=== PATIENT | male | born 1960 | race Caucasian/White ===

== ENCOUNTER → 2017-07-18 | Outpatient (CLI) | payer OTHER ==
[~2017-07-18] MED LIST: ENAL0; LISINOPRIL; NORCO 5-325 TA1 EACH PO; NORFLEX100 MG PO; SIMVASTATIN
--- NOTE | 2017-07-30 18:42 | ONC ---
[place] [address] RADIATION ONCOLOGY NOTE Name: JOSE MANUEL ZAMORA Room: [facility]#: [id number] Admission: 07/18/17 Attend Phys: Collin Ortiz MD Discharge: Date of : 64 Report #: [id number] THIS REPORT FOR: //name// CC: Collin Echeverria MD DATE OF SERVICE: 07/18/2017 REFERRING PHYSICIANS: Dr. Shine Duong and Dustin Echeverria MD. PRIMARY SITE AND HISTOPATHOLOGY: The patient has at least a stage III base of tongue cancer. [facility] phone is [phone]. PROCEDURE: Nasopharyngolaryngoscopy. FINDINGS: On nasopharyngolaryngoscopy via the left nostril, there were no visible lesions in the nasopharynx. There were no visible lesions in the nostril. The patient did have fullness in the left base of tongue area. The true vocal cords were normally mobile bilaterally without any visible lesions, so the patient has findings consistent with his known diagnosis of base of tongue cancer. The patient is being set up for treatment of his base of tongue cancer. Thank you for allowing me to participate in the care of this patient. <ELECTRONICALLY SIGNED> By: Collin Ortiz MD 07/30/17 1842 1121 152Haja Ortiz MD /kamryn
--- NOTE | 2017-07-30 20:24 | CON ---
[address] [address] CONSULTATION Name: JOSE MANUEL ZAMORA Room: [facility]#: [id number] Admission: 07/18/17 Attend Phys: Collin Ortiz MD Discharge: Date of : 64 Report #: [id number] THIS REPORT FOR: //name// CC: Collin Echeverria MD DATE OF CONSULTATION: 07/18/2017 REFERRING PHYSICIANS: Include Dr. Dustin Echeverria and Dr. Shine Duong. [facility] phone is [phone]. 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 HISTORY OF PRESENT ILLNESS: The patient is a 57-year-old gentleman who had an enlarging left neck mass since at least 05/2017. He was originally treated with oral antibiotics and the mass persisted. He is a former smoker and he quit smoking many years ago. When he went to see his Ear, Nose and Throat physician, Dr. Dustin Echeverria, he noted a 3 cm left level 2 neck mass. It was firm and not tender. The fiberoptic exam at that time showed asymmetry in the left base of tongue. 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 The pathology report indicated that they ordered studies for HPV-P16 and that was pending. He presents to discuss treatment options. PAST MEDICAL HISTORY AND PAST SURGICAL HISTORY: The patient has hypertension. He has hyperlipidemia. He had surgery at [facility] in 04/2015 on his Achilles heel. He also had eye surgery in 05/1972. MEDICATIONS: Amlodipine 10 mg once a day, atorvastatin 20 mg once a day, 2.5 mg bisoprolol/6.25 mg hydrochlorothiazide once a day. He is on Cefdinir, etodolac as well, 7.5 mg hydrocodone/325 mg acetaminophen as needed, Aleve as needed, vitamin D supplements. ALLERGIES: He has no known drug allergies. FAMILY HISTORY: Father had prostate cancer. SOCIAL HISTORY: The patient is retired. He is . He has 2 sons. Ethanol: he occasionally drinks ethanol containing drinks. Cigarettes: he smoked less than 1 pack per day of cigarettes for about 3 years and he [place] [address] [address] CONSULTATION Name: ZAMROAJOSE MANUEL Room: [facility]#: [id number] Admission: 07/18/17 Attend Phys: Collin Ortiz MD Discharge: Date of : 64 Report #: [id number] REVIEW OF SYSTEMS: GENERAL: The patient denied having any fevers or chills. SKIN: The patient denied having any color changes or itching. LYMPH NODES: The patient does have enlarged lymph nodes in the left neck area. ENDOCRINE: He denied having any hot or cold intolerance. HEMATOLOGY/IMMUNOLOGY: The patient denied having any recent bleeding. MUSCULOSKELETAL: He denied having any painful swollen joints. HEAD AND NECK: He has occasional mild headaches that resolve on their own. He had a sore throat since his biopsy. RESPIRATORY: He denied having any shortness of breath, cough or wheezing. CARDIOVASCULAR: He denied having palpitations or chest pain. GASTROINTESTINAL: The patient denied having nausea or vomiting. NEUROLOGIC: He denied having any focal weakness. PHYSICAL EXAMINATION: GENERAL: The patient was alert, oriented, in no acute distress. VITAL SIGNS: Height 6 feet 1 inch, weight 322.4 pounds, blood pressure 154/103, pulse 73, oxygen saturation 95% on room air, respirations 18. LYMPH NODES: He had a palpable about 4.2 cm. x 2.5 cm x 1.2 cm left neck lymphadenopathy. EYES: Pupils were equal, round, reactive to light and accommodation. Extraocular movements were intact. HEAD, EARS, NOSE AND THROAT: Mouth had no suspicious visible lesions or suspicious palpable lesions. On nasopharyngolaryngoscopy via the left nostril, there were no suspicious visible lesions in the nasopharynx. In the oropharynx, there was enlargement of the left base of tongue and there were no others visible lesions. True vocal cords were normally mobile bilaterally without any visible lesions. HEART: Had a regular rate and rhythm without murmur. LUNGS: were clear to auscultation. ABDOMEN: Not tender. Spleen was not palpable. Liver was at the costal margin. EXTREMITIES: Had no clubbing, cyanosis or edema. NEUROLOGIC: Cranial nerves II to XII were intact. Sensation was intact, He had 5/5 strength in his extremities. ASSESSMENT AND PLAN: The patient has findings consistent with at least a stage III base of tongue cancer. The patient was told that his treatment options include surgical resection with likely postoperative radiation therapy with or without chemotherapy versus definitive radiation therapy with evaluation for concurrent chemotherapy, reserving surgery for salvage. The efficacy of chemotherapy and radiation therapy for locally advanced head and neck cancer can be found in the study where Dr. Jaime was one of the authors. In that study they randomized patients with locally advanced head and neck cancer to radiation therapy alone versus radiation therapy and chemotherapy versus split course radiation therapy and chemotherapy. The best 3-year disease free survival was with concurrent chemoradiotherapy at 51%. It was 33% with radiation therapy alone and it was a 41% with split course chemoradiotherapy. The patient is a good candidate for intensity modulated radiation therapy. The efficacy of intensity modulated radiation therapy [place] [address] CONSULTATION Name: ZAMORAJOSE MANUEL Room: [facility].#: [id number] Admission: 07/18/17 Attend Phys: Collin Ortiz MD Discharge: Date of : 64 Report #: [id number] cell cancer can be found in the article entitled "Treatment of oropharyngeal squamous cell carcinoma with IMRT: Patterns of failure after concurrent chemoradiotherapy and sequential therapy." One of the authors is Dr. Danielle, and he is from the [facility] in [place] and this was published in the Annals of Oncology, volume 23 and it was published in 2012. With intensity modulated radiation therapy the 3-year overall survival was 86% and the local regional control was 89%. So the risks, benefits and logistics of radiation therapy were explained to the patient in detail. The patient gave his witnessed informed consent to proceed with radiation therapy. He will be set up for further staging and preparation for radiation therapy. Thank you very much for this consult. <ELECTRONICALLY SIGNED> By: Collin Ortiz MD 07/30/17 2024 1208 [id number] Ortiz MD /nt
== END | disposition home or self-care (01) ==
LOC: M.RTH 03:30
DX: C01 Malignant neoplasm of base of tongue (principal); I10 Essential (primary) hypertension; E78.5 Hyperlipidemia, unspecified; Z98.890 Other specified postprocedural states; Z79.899 Other long term (current) drug therapy; Z87.891 Personal history of nicotine dependence; Z80.42 Family history of malignant neoplasm of prostate; Z79.891 Long term (current) use of opiate analgesic

== ENCOUNTER → 2017-08-13 | Outpatient (CLI) | payer OTHER | LOC: M.RAD 09:20 | DX: C01 Malignant neoplasm of base of tongue (principal) ==

== ENCOUNTER → 2017-10-31 | Outpatient (CLI) | payer OTHER ==
--- NOTE | 2017-11-11 11:39 | ONC ---
[address] [address] RADIATION ONCOLOGY NOTE Name: JOSE MANUEL ZAMORA Room: [facility]#: [id number] Admission: 10/31/17 Attend Phys: Collin Ortiz MD Discharge: Date of : 64 Report #: [id number] THIS REPORT FOR: //name// CC: Collin Parker MD DATE OF SERVICE: 10/31/2017 [facility] phone is [phone]. PRIMARY SITE AND HISTOPATHOLOGY: The patient received radiation therapy and chemotherapy for a stage II, T3N2M0, P16 positive base of tongue cancer. The radiation therapy was completed on 10/02/2017. INTERVAL NOTE: The patient is still taking all his feedings through his gastric tube, but he says his weight has been now stable over the last 2 weeks. He takes about 5-6 cans of supplement per day. It is either Nutren or Ensure. He is still using the 25 mcg per hour Duragesic patch. He still takes about four 10 mg hydrocodone per day. His pain is improving. He still has some mucositis in the left side of the tongue. He still has a rare intermittent non productive cough. He still has thick mucus, which makes eating difficulties. He saw his ear, nose and throat physician a few days ago. The left neck mass continues to decrease in size, but is still present. He is scheduled to see Dr. Parker, his medical oncologist as well as his ear, nose and throat physician, Dr. Echeverria next month. MEDICATIONS: Include amlodipine, hydrocodone, Maalox, 25 mcg fentanyl patch. SOCIAL HISTORY: The patient is . Cigarettes: he does not smoke cigarettes. He quit smoking in 1985. He smoked less than a pack per day for about 3 years. REVIEW OF SYSTEMS: RESPIRATORY: Breathing was stable. GASTROINTESTINAL: The patient is using his gastric tube reasonably well for his nutrition. LYMPH NODES: He still has palpable left cervical lymphadenopathy, though it continues to shrink in size. It measured about 2.8 cm. x 2.1 cm. x 0.8 cm. Previously at the end of his treatment, it measured about 2.9 cm. x 2.2 cm. x 0.9 cm. HEAD, EYES, EARS, NOSE, AND THROAT: There were no suspicious palpable masses in the mouth. He still has some mucositis in the left side of the tongue. HEART: Had a regular rate and rhythm without murmur. LUNGS: were clear to auscultation. ABDOMEN: Soft and gastric tube was in place. LABORATORY DATA: From 10/23/2017, hemoglobin 9.5, platelets 316,000 and white blood cells were 6.5. Sodium 130, potassium 4.0, BUN 16, creatinine 1.1. [place] [address] RADIATION ONCOLOGY NOTE Name: JOSE MANUEL ZAMORA Room: [facility]#: [id number] Admission: 10/31/17 Attend Phys: Collin Ortiz MD Discharge: Date of : 64 Report #: [id number] ASSESSMENT AND PLAN: 1. History of base of tongue cancer- The patient is scheduled for a neck and chest CT by his medical oncologist, Dr. Parker on 11/21/2017. He is scheduled to see her on 11/22/2017. If he continues to have persistent left neck lymphadenopathy, he will probably be referred to his ear, nose and throat physician for possible resection of that firm lymph node. He says he is also scheduled to see his ear, nose and throat physician, Dr. Echeverria around that time. Lab work was ordered towards the end of November or beginning of December and the patient was asked to schedule a follow up appointment with me afterwards. 2. Nutrition- The patient was told to try to transition to oral feedings. Lab work will be ordered around the end of November or beginning of December. The patient will be asked to schedule a followup appointment to see me afterwards. 3. Anemia- Dr. Parker ordered an endoscopy to probably check if there could be any gastrointestinal bleeding causing his anemia, though his hemoglobin has started to go up. So, I told the patient to contact her office to see if she still wants to proceed with the endoscopy. 4. Pain control- The patient's Duragesic was decreased from a 25 mcg per hour patch to a 12 mcg per hour patch. He was told to try to taper the Percocet and that was also refilled. 5. Dental care. The patient was told to use fluoride gel for dental care. Thank you for allowing me to participate in the care of this patient. <ELECTRONICALLY SIGNED> By: Collin Ortiz MD 11/11/17 1139 1249 [id number] Ortiz MD /nt
== END ==
LOC: M.RTH 04:31
DX: Z08 Encounter for follow-up examination after completed treatment for malignant neoplasm (principal); D64.9 Anemia, unspecified; Z85.810 Personal history of malignant neoplasm of tongue

== ENCOUNTER → 2017-12-05 | Outpatient (CLI) | payer OTHER ==
--- NOTE | 2017-12-15 22:29 | ONC ---
[place] [id number] RADIATION ONCOLOGY NOTE Name: JOSE MANUEL ZAMORA Room: [facility]#: [id number] Admission: 12/05/17 Attend Phys: Collin Ortiz MD Discharge: Date of : 64 Report #: [id number] THIS REPORT FOR: //name// CC: Collin Echeverria MD DATE OF SERVICE: 12/05/2017 REFERRING PHYSICIANS: Dustin Echeverria MD; Shine Duong MD and Rosalinda Parker MD. [facility] phone is [phone]. PRIMARY SITE AND HISTOPATHOLOGY: The patient received radiation therapy and chemotherapy for a stage II, T3N2M0, P16 positive base of tongue cancer. The radiation therapy was completed on 10/02/2017. PROCEDURE: Nasopharyngolaryngoscopy. FINDINGS: On nasopharyngolaryngoscopy, after application of 2% viscous lidocaine to the left nostril and 2% viscous lidocaine orally, there were no suspicious visible lesions in the nasopharynx, posterior oropharynx. There were no suspicious visible lesions in the base of tongue area. The true vocal cords were normally mobile bilaterally without any visible lesions. On physical exam, he still has a palpable lymph node in the left neck. The primary site appears disease free, but he may still have persistent disease in the left neck. Thank you for allowing me to participate in the care of this patient. <ELECTRONICALLY SIGNED> By: Collin Ortiz MD 12/15/17 2229 1203 0026Dadebo Ortiz MD /nt
--- NOTE | 2017-12-15 22:53 | ONC ---
[place] [address] RADIATION ONCOLOGY NOTE Name: JOSE MANUEL ZAMORA Room: [facility]#: [id number] Admission: 12/05/17 Attend Phys: Collin Ortiz MD Discharge: Date of : 64 Report #: [id number] THIS REPORT FOR: //name// CC: Collin Duong MD DATE OF SERVICE: 12/05/2017 RADIATION ONCOLOGY FOLLOWUP NOTE [facility] phone is [phone]. REFERRING PHYSICIANS: 1. Shine Dunog M.D. 2. Dustin Echeverria M.D. 3. Rosalinda Parker M.D. PRIMARY SITE AND HISTOPATHOLOGY: The patient received definitive radiation therapy and chemotherapy for a stage II, T3 N2 M0, P16 positive base of tongue cancer. Radiation therapy was completed on 10/02/2017. INTERVAL NOTE: The patient had a video swallow, which showed aspiration with thin-consistency barium and penetration with nectar and honey-consistency barium. He started VitalStim speech therapy exercises. He is still taking most of his nutrition through his gastric tube. He tries to take about 4 cans of supplements in one day and then 5 cans of supplements on the next day. Usually, it is either Nutren or Boost. He has been able to taper down to the 12 mcg per hour Duragesic patch from the 25 mcg per hour Duragesic patch and he has much less oral discomfort. He still sometimes takes about four or five 10 mg hydrocodone per day. The left neck mass continues to decrease in size. MEDICATIONS: Amlodipine, hydrocodone, omeprazole and the fentanyl patch, which is now a 12 mcg per hour fentanyl patch. SOCIAL HISTORY: The patient is . Cigarettes: he quit smoking in 1985. He smoked less than a pack per day for about 3 years. REVIEW OF SYSTEMS: RESPIRATORY: Breathing was stable and he was not short of breath. GASTROINTESTINAL: He is using his gastric tube for his nutrition. PHYSICAL EXAMINATION: LYMPH NODES: He still has a palpable mass in the left neck area that measured about 2.5 cm x 2 cm. On 10/31/2017, it was about 2.8 cm x 2[place] [address] RADIATION ONCOLOGY NOTE Name: JOSE MANUEL ZAMORA Room: [facility]#: [id number] Admission: 12/05/17 Attend Phys: Collin Ortiz MD Discharge: Date of : 64 Report #: [id number] HEAD, EYES, EARS, NOSE AND THROAT EXAMINATION: Mouth had no suspicious visible lesions or suspicious palpable lesions. On nasopharyngolaryngoscopy, after application of 2% viscous lidocaine orally and 2% viscous lidocaine to the left nostril, there were no visible lesions in the nasopharynx. There were no visible lesions in the posterior oropharynx and there were no visible lesions in the base of tongue. The true vocal cords were normally mobile bilaterally. HEART: Had a regular rate and rhythm, without murmur. LUNGS: were clear to auscultation. ABDOMEN: Not tender and the gastric tube was intact. LABORATORY DATA: From 11/21/2017, hemoglobin 11.2, platelets 704,000 and white blood cells 7.7. Sodium 135, potassium 4.2, BUN 21, creatinine 1.23 and calcium 10.0. AST 19, ALT 17 and from 10/17/2017, TSH was 0.53. RADIOLOGIC DATA: From chest CT on 11/21/2017, there was no thoracic metastatic disease. He had mild emphysema. He also had a neck CT which showed no discrete mass in the tongue area. He did have a level 2 jacob mass that measured 2.7 cm x 2.3 cm; previously, it measured 2.9 cm x 2.6 cm on 07/26/2017. ASSESSMENT AND PLAN: 1. History of base of tongue cancer- He had a good response to his radiation and chemotherapy. He still has palpable disease in the left neck. I will see about ordering lab work and a PET CT in about a month and have the patient follow up with me afterwards to see if this is continuing to resolve or whether he may possibly have to be evaluated for surgical resection of any residual disease. 2. Nutrition- The patient is undergoing VitalStim therapy so he can see about oral feedings in the future. In the meantime, he is taking feedings through his gastric tube and he was encouraged to take enough feedings to keep his weight stable. 3. Pain control- He was given a refill for hydrocodone, and he was told to taper off the Duragesic patch, so that ultimately he can hopefully taper off all these pain medicines. 4. Dental care- The patient prefers PreviDent 5000 for his fluoride paste. Thank you for allowing me to participate in the care of this patient. <ELECTRONICALLY SIGNED> By: Collin Ortiz MD 12/15/17 2253 1210 0106Collin Ortiz MD /nt
== END ==
LOC: M.RTH 03:52
DX: Z08 Encounter for follow-up examination after completed treatment for malignant neoplasm (principal); Z85.810 Personal history of malignant neoplasm of tongue; Z79.899 Other long term (current) drug therapy

== ENCOUNTER → 2018-02-20 | Outpatient (CLI) | payer OTHER ==
--- NOTE | ~2018-02-20 | ONC ---
[place] [address] RADIATION ONCOLOGY NOTE Name: JOSE MANUEL ZAMORA Room: [facility]#: [id number] Admission: 02/20/18 Attend Phys: Collin Ortiz MD Discharge: Date of : 64 Report #: [id number] THIS REPORT FOR: //name// CC: Collin Duong DATE OF SERVICE: 02/20/2018 REFERRING PHYSICIANS: Dustin Echeverria MD; Rosalinad Parker MD; Shine Duong MD [facility] phone is [phone]. PRIMARY SITE AND HISTOPATHOLOGY: The patient received definitive radiation therapy and chemotherapy for stage 2, T3N2M0, P16 positive base of tongue cancer. Radiation therapy was completed on 10/02/2017. INTERVAL NOTE: The patient feels like he is eating well. He is having his third dilation of the esophagus tomorrow with his fixed income manager, Dr. Hunt. His gastric tube fell out in late January and he says that over the last 3 weeks his weight has been stable in about 260s. He is eating salads, meats and feels like he is actually swallowing very well. MEDICATIONS: Amlodipine, atorvastatin, bisoprolol, aspirin, omeprazole. SOCIAL HISTORY: The patient is . Cigarettes, he quit smoking in 1985, smoked less than a pack per day for about 3 years. REVIEW OF SYSTEMS: RESPIRATORY: Breathing was stable. He was not short of breath. GASTROINTESTINAL: He is right now eating well. PHYSICAL EXAMINATION: LYMPH NODES: The left neck lymph node appears to have pretty much almost completely regressed. There is only about a 1 cm area of fibrosis in that area. HEAD, EYES, EARS, NOSE AND THROAT: Mouth had no suspicious visible lesions or suspicious palpable lesions. On nasopharyngolaryngoscopy, after application of 2% viscous lidocaine orally, 2% viscous lidocaine to left nostril, there were no visible lesions in the nasopharynx and no visible lesions in the posterior oropharynx. There were no visible lesions at the base of tongue. The true vocal cords are normally mobile bilaterally. HEART: Had a regular rate and rhythm without murmur. LUNGS: Clear to auscultation. ABDOMEN: The area where the gastric tube used to be in place is well healed. LABORATORY DATA: From 01/08/2018, sodium 139, potassium 3.9, BUN 17, creatinine 1.05. TSH was 1.51. White blood cell count 6.5, hemoglobin 12.4, [place] [address] RADIATION ONCOLOGY NOTE Name: JOSE MANUEL ZAMORA Room: [facility]#: [id number] Admission: 02/20/18 Attend Phys: Collin Ortiz MD Discharge: Date of : 64 Report #: [id number] 161,000. RADIOLOGIC DATA: From 01/08/2018, the patient had a PET/CT and the patient has significant decrease in the size of hypermetabolic activity of previously noted left base of tongue, left tonsillar oropharyngeal mass. The patient has only a slight residual uptake in the left base of tongue, which is probably post therapeutic and there was decrease in size of the previous lymphadenopathy. He has some findings of esophagitis. ASSESSMENT AND PLAN: 1. History of base of tongue cancer. There is no evidence of base of tongue cancer at this time. He says he is seeing his Ear, Nose and Throat physician, Dr. Echeverria, later this week. He is scheduled for a neck and chest CT as well as lab work with his medical oncologist, Dr. Parker, on 04/09/2018. He has an appointment with Dr. Parker on 04/11/2018 and he had lab work ordered with me with a complete blood count, basic metabolic panel and TSH in 05/2018 and he is asked to follow up with me afterwards. 2. Dental care. The patient uses PreviDent 5000. His dentist provides it for him and his teeth look like they are in good condition. 3. Nutrition. He feels like his weight is stable and he is undergoing esophageal dilation tomorrow. Thank you for allowing me to participate in the care of this patient. By: 1205 1427Dadebo Ortiz MD /kamryn
--- NOTE | ~2018-02-20 | ONC ---
[place] [address] RADIATION ONCOLOGY NOTE Name: JOSE MANUEL ZAMORA Room: [facility]#: [id number] Admission: 02/20/18 Attend Phys: Collin Ortiz MD Discharge: Date of : 64 Report #: [id number] THIS REPORT FOR: //name// CC: Collin Duong DATE OF SERVICE: 02/20/2018 REFERRING PHYSICIANS: Dustin Echeverria MD; Shine Duong MD; Rosalinda Parker MD. [facility] phone is [phone]. PRIMARY SITE AND HISTOPATHOLOGY: The patient received radiation therapy and chemotherapy for stage 2, T3N2M0, P16 positive base of tongue cancer. The radiation therapy was completed on . PROCEDURE: Nasopharyngolaryngoscopy. FINDINGS: On nasopharyngolaryngoscopy, after application of 2% viscous lidocaine to left nostril and 2% viscous lidocaine orally, there were no suspicious visible lesions in the nasopharynx or posterior oropharynx. There were no suspicious visible lesions at the base of tongue area. The true vocal cords were normally mobile bilaterally without any visible lesions. On physical examination, his lymph node it looks like almost has completely regressed. He appears to have like maybe about 1 cm of fibrosis in the left neck area, so there is no clear evidence of any persistent head and neck cancer. Thank you for allowing me to participate in the care of this patient. By: 1156 1420Collin Ortiz MD /kamryn
== END ==
LOC: M.RTH 01-23 09:00
DX: Z85.810 Personal history of malignant neoplasm of tongue (principal); Z87.891 Personal history of nicotine dependence; Z79.899 Other long term (current) drug therapy

== ENCOUNTER → 2018-07-26 | Outpatient (CLI) | payer OTHER ==
--- NOTE | 2018-08-09 12:54 | ONC ---
[place] [address] RADIATION ONCOLOGY NOTE Name: JOSE MANUEL ZAMORA Room: [facility]#: [id number] Admission: 07/26/18 Attend Phys: Collin Ortiz MD Discharge: Date of : 64 Report #: [id number] THIS REPORT FOR: //name// CC: Collin Hunt MD DATE OF PROCEDURE: 07/26/2018 [facility] phone is [phone]. PRIMARY SITE AND HISTOPATHOLOGY: The patient received radiation therapy and chemotherapy for a stage II, T3 N2 M0, P16 positive base of tongue cancer. Radiation therapy was completed on 11/23/2017. PROCEDURE: Nasopharyngolaryngoscopy. FINDINGS: On nasopharyngolaryngoscopy, after application of 2% viscous lidocaine to the left nostril and 2% viscous lidocaine orally, there were no suspicious visible lesions in the nasopharynx or posterior oropharynx. There were no suspicious visible lesions at the base of tongue area. The true vocal cords were normally mobile bilaterally without any visible lesions. There is no evidence of head and neck cancer. Thank you for allowing me to participate in the care of this patient. <ELECTRONICALLY SIGNED> By: Collin Ortiz MD 08/09/18 1254 1302 2239MD shabana Rand
--- NOTE | 2018-08-11 18:24 | ONC ---
[place] [address] RADIATION ONCOLOGY NOTE Name: JOSE MANUEL ZAMORA Room: [facility]#: [id number] Admission: 07/26/18 Attend Phys: Collin Ortiz MD Discharge: Date of : 64 Report #: [id number] THIS REPORT FOR: //name// CC: Collin Hunt MD DATE OF SERVICE: 07/26/2018 REFERRING PHYSICIANS: Rosalinda Parker MD; Dustin Echeverria MD, Shine Duong MD and Thomas Hunt MD [facility] phone is [phone]. PRIMARY SITE AND HISTOPATHOLOGY: The patient received definitive radiation therapy and chemotherapy for a stage II, T3 N2 M0, P16 positive base of tongue cancer. Radiation treatments were completed on 10/02/2017. INTERVAL NOTE: The patient felt like he was eating well. The patient was working with some flag stone outside and he may have strained a muscle and caused some pain in the left rib area. He has had that pain for several weeks. He likes to eat pizza and other solid foods. He uses fluoride trays for dental care. MEDICATIONS: Amlodipine, atorvastatin and bisoprolol. SOCIAL HISTORY: The patient is . Cigarettes: he quit smoking in 1985. He smoked less than a pack per day for about 3 years. REVIEW OF SYSTEMS: RESPIRATORY: Breathing was stable. He was not short of breath. GASTROINTESTINAL: The patient has a good appetite. PHYSICAL EXAMINATION: VITAL SIGNS: The patient weighed 263 pounds on 07/26/2018. He was 262.8 pounds on 02/20/2018. On 07/26/2018, blood pressure was 148/100, pulse 79, oxygen saturation 97% and respirations 20. LYMPH NODES: He had no palpable cervical, supraclavicular, inguinal lymphadenopathy. HEAD, EYES, EARS, NOSE AND THROAT: Mouth had no suspicious visible lesions or suspicious palpable lesions. The patient felt that he could tolerate the nasopharyngolaryngoscopy without the use of lidocaine, so it was not used and he did tolerate it well. On nasopharyngolaryngoscopy, [place] [address] RADIATION ONCOLOGY NOTE Name: JOSE MANUEL ZAMORA Room: [facility]#: [id number] Admission: 07/26/18 Attend Phys: Collin Ortiz MD Discharge: Date of : 64 Report #: [id number] lesions in the nasopharynx or posterior oropharynx and there were no visible lesions at the base of tongue. The true vocal cords were normally mobile bilaterally. Please note that the procedure note should have said that no lidocaine was used. HEART: Had a regular rate and rhythm without murmur. LUNGS: were clear to auscultation. ABDOMEN: Not tender. He had some mild tenderness around the left ribs. LABORATORY DATA: From 07/09/2018, hemoglobin 14.5, platelets 157,000, white blood cells 5.4. Sodium 138, potassium 3.9, BUN 22, creatinine 1.18 and TSH 1.37. RADIOLOGIC DATA: Chest CT from 07/09/2018, he had atherosclerotic coronary calcifications and mild ectasia of the ascending thoracic aorta measuring 4.1 cm. There was resolution of the previously noted ill-defined pleural based nodular opacity in the left lower lobe consistent with the resolution of an area of pneumonitis. There was some circumferential mural thickening of the esophagus, which may be due to esophagitis. ASSESSMENT AND PLAN: 1. History of base of tongue cancer- There is no evidence of base of tongue cancer at this time. His medical oncologist, Dr. Parker, ordered a neck and chest CT to be done around 10/11/2018. He has an appointment with Dr. Parker on 10/15/2018. He continues to follow up with Dr. Echeverria. He was given a requisition for lab work in about 6 months and he was asked to schedule a follow up appointment to see me afterwards. 2. Dental care- The patient uses PreviDent 5000 fluoride and his dentist provides it for him. His teeth look in good condition. 3. Aortic ectasia- The patient will be referred to the vascular surgeon, Dr. Green or his colleagues to manage this issue. 4. Esophageal thickening-It is probably due to esophagitis. He will be referred back to Dr. Hunt who has performed his esophageal dilations in the past to evaluate that issue 5. Left rib pain, probably due to muscle strain after yard work- Plain films of the ribs will be ordered. lab work was ordered in about 6 months and the patient was asked to schedule a follow up appointment to see [place] [address] RADIATION ONCOLOGY NOTE Name: JOSE MANUEL ZAMORA: [facility]#: [id number] Admission: 07/26/18 Attend Phys: Collin Ortiz MD Discharge: Date of : 64 Report #: [id number] Thank you for allowing me to participate in the care of this patient. <ELECTRONICALLY SIGNED> By: Collin Ortiz MD 08/11/18 1824 1313 0025Collin Ortiz MD /nt
== END ==
LOC: M.RTH 05-03 14:00
DX: Z08 Encounter for follow-up examination after completed treatment for malignant neoplasm (principal); I77.819 Aortic ectasia, unspecified site; R07.81 Pleurodynia; Z85.810 Personal history of malignant neoplasm of tongue

== ENCOUNTER → 2019-01-10 | Outpatient (CLI) | payer OTHER ==
--- NOTE | ~2019-01-10 | ONC ---
[facility] [address] [place] [address] RADIATION ONCOLOGY NOTE Name: JOSE MANUEL ZAMORA Room: [facility]#: [id number] Admission: 01/10/19 Attend Phys: Collin Ortiz MD Discharge: Date of : 64 Report #: [id number] THIS REPORT FOR: //name// CC: Collin Duong DATE OF SERVICE: 01/10/2019 REFERRING PHYSICIANS: Shine Duong M.D.; Dr Rosalinda Parker M.D. and Dustin Echeverria M.D. [facility], phone is [phone]. PRIMARY SITE AND HISTOPATHOLOGY: The patient received radiation therapy and chemotherapy for stage 2, T3N2M0, P16 base of tongue cancer. The radiation therapy was completed on . PROCEDURE: Nasopharyngolaryngoscopy. FINDINGS: On nasopharyngolaryngoscopy, after application of 2% viscous lidocaine to the left nostril and 2% viscous lidocaine orally, there were no suspicious visible lesions in the nasopharynx or posterior oropharynx. There were no suspicious visible lesions in the base of tongue area. The true vocal cords were normally mobile bilaterally without any visible lesions. There is no clear evidence of head and neck cancer. Thank you for allowing me to participate in the care of this patient. By: 1344 MD shabana Cartagena
--- NOTE | ~2019-01-10 | ONC ---
[address] [address] RADIATION ONCOLOGY NOTE Name: JOSE MANUEL ZAMORA Room: [facility]#: [id number] Admission: 01/10/19 Attend Phys: Collin Ortiz MD Discharge: Date of : 64 Report #: [id number] THIS REPORT FOR: //name// CC: Collin Duong DATE OF SERVICE: 01/10/2019 RADIATION ONCOLOGY FOLLOWUP NOTE REFERRING PHYSICIANS: Shine Duong MD., Rosalinda Parker MD., Dustin Echeverria MD. [facility] phone is [phone]. PRIMARY SITE AND HISTOPATHOLOGY: The patient received definitive radiation therapy and chemotherapy for stage 2, T3 N2 M0 P16 positive base of tongue cancer. Radiation therapy was completed on 10/02/2017. INTERVAL NOTE: The patient felt like he was eating well. He has had esophageal dilations and he is eating regular food such as salads and meats. He had a small abrasion on the lateral portion of his tongue He saw his ear, nose, throat physician, Dr. Echeverria, who did perform a biopsy, which had some dysplastic cells, but no aldair carcinoma. He did have some sharp areas on his teeth so he may have had an abrasion from his teeth and he has had those areas smoothed out by his dentist and the superior area appears to be healing in. He states he is going to be seeing Dr. Echeverria next week. MEDICATIONS: Include amlodipine, atorvastatin, bisoprolol, aspirin and omeprazole. SOCIAL HISTORY: The patient is . Cigarettes, he quit smoking in 1985. He smoked less than a pack per day for about 3 years. REVIEW OF SYSTEMS: RESPIRATORY: Breathing was stable. He was not short of breath. GASTROINTESTINAL: He is eating well. PHYSICAL EXAMINATION: VITAL SIGNS: The patient weighed 261 pounds on 01/10/2019. He was 263 pounds on 07/26/2017. 01/10/2019, blood pressure was 142/101. He says that it is lower at home and he does check that. LYMPH NODES: He had no palpable cervical or supraclavicular lymphadenopathy. HEAD, EYES, EARS, NOSE AND THROAT: Mouth had area on the left tongue, which looks like it is almost completely healed there was about a 3 millimeters in diameter. It is very superficial with no real [place] [address] RADIATION ONCOLOGY NOTE Name: JOSE MANUEL ZAMORA Room: [facility]#: [id number] Admission: 01/10/19 Attend Phys: Collin Ortiz MD Discharge: Date of : 64 Report #: [id number] than that he had no suspicious visible lesions that area looks like it could be just abrasion from the teeth that is healing up. Nasopharyngolaryngoscopy and the patient did not need lidocaine, so it was done without lidocaine and that was via the left nostril, there were no suspicious visible lesions in the nasopharynx. None in the posterior oropharynx, had no visible lesions at the base of tongue. The true vocal cords are normally mobile bilaterally. HEART: Had a regular rate and rhythm without murmur. LUNGS: Clear to auscultation. LABORATORY DATA: From 01/09/2019, hemoglobin 14.3, platelets 167,000, white blood cell count 5.9. Sodium was 140, potassium 4.2, BUN was 22, creatinine was 1.42. AST was 17, ALT was 12. TSH was within normal limits at 1.84. ASSESSMENT AND PLAN: 1. History of base of tongue cancer. There is no clear evidence of recurrent basal tongue cancer. The area on the left, small ulcer on the left tongue looks very superficial with no firm areas and would be consistent probably with an abrasion on the tooth seems to be getting smaller. He is seeing his ear, nose and throat physician next week and I ordered lab work and a neck CT without contrast in a month. 2. Dental care. The patient uses PreviDent 500 that his dentist provides it for him and his teeth look like they are in good condition. 3. Rising creatinine. The patient was then instructed to increase his fluid intake that should help stabilize his creatinine. Thank you for allowing me to participate in the care of this patient. By: 1356 1438Collin Ortiz MD /kamryn
== END ==
LOC: M.RTH 04:55
DX: Z08 Encounter for follow-up examination after completed treatment for malignant neoplasm (principal); Z85.810 Personal history of malignant neoplasm of tongue

== ENCOUNTER → 2019-03-07 | Outpatient (CLI) | payer OTHER ==
--- NOTE | ~2019-03-07 | ONC ---
[place] [address] RADIATION ONCOLOGY NOTE Name: JOSE MANUEL ZAMORA Room: [facility]#: [id number] Admission: 03/07/19 Attend Phys: Collin Ortiz MD Discharge: Date of : 64 Report #: [id number] THIS REPORT FOR: //name// CC: Collin Duong DATE OF SERVICE: 03/07/2019 RADIATION ONCOLOGY FOLLOWUP NOTE REFERRING PHYSICIANS: Shine Duong MD; Rosalinda Parker MD; Dustin Echeverria MD; Alejandro Green MD and Thomas Hunt MD. [facility] phone is [phone]. PRIMARY SITE AND HISTOPATHOLOGY: The patient received definitive radiation therapy and chemotherapy for stage 2, T3 N2 M0 P16 positive base of tongue cancer. Radiation therapy was completed on 10/02/2017. INTERVAL NOTE: The patient felt like he was eating well. The area on the left lateral side of the tongue where had the biopsy by Dr. Echeverria, he felt like that was healing well. He has an appointment with his ear, nose and throat physician, Dr. Echeverria, next week. He is eating regular food such as salads and meats. The area was felt to be in area where he may have had an abrasion from biting on the tongue because of his tooth. MEDICATIONS: Include amlodipine, atorvastatin, bisoprolol, aspirin, omeprazole. SOCIAL HISTORY: The patient is . Cigarettes, he quit smoking in 1985. He has smoked less than a pack per day for about 3 years. He quit in 1985. REVIEW OF SYSTEMS: RESPIRATORY: Breathing was stable. He was not short of breath. GASTROINTESTINAL: He is eating well with a good appetite. PHYSICAL EXAMINATION: VITAL SIGNS: The patient weighed 264.8 pounds on 03/07/2019, he was 261 pounds on 01/10/2019. On 03/07/2019, blood pressure is 140/90, pulse 78, respirations 20, oxygen saturation 98%. LYMPH NODES: He had no palpable cervical or supraclavicular lymphadenopathy. HEAD, EYES, EARS, NOSE AND THROAT: Mouth had a small area of mucositis on the left tongue that is smaller than it was in the past where the patient sometimes appears to bite on the tongue, it is about 2 mm in diameter. It is very superficial with no firmness in that area. It was previously biopsied by Dr. Echeverria and there is no malignancy in that area and he is seeing Dr. Echeverria again next week. On nasopharyngolaryngoscopy without [place] [address] RADIATION ONCOLOGY NOTE Name: JOSE MANUEL ZAMORA [facility] [id number] Admission: 03/07/19 Attend Phys: Collin Ortiz MD Discharge: Date of : 64 Report #: [id number] has declined it in the past since he tolerates without lidocaine and that was via the left nostril. There were no visible lesions in the nasopharynx. There were no visible lesions in the posterior oropharynx and no visible lesions in the base of tongue. The true vocal cords were normally mobile bilaterally. HEART: Had a regular rate and rhythm without murmur. LUNGS: Clear to auscultation. LABORATORY DATA: From 02/12/2019, hemoglobin 14.2, platelets 188,000, white blood cells 7.6. Sodium 139, potassium 3.9, BUN 22, creatinine 1.33 and a TSH on 01/09/2019 was 1.84. RADIOLOGIC DATA: Neck CT on 02/12/2019 at [facility] showed no new neck mass with decreased size of the treated left level 2 jacob metastasis with no new enlarging lymphadenopathy. The lymph node measured 1.7 x 1 cm, previously measured 1.8 x 1.5 cm. ASSESSMENT AND PLAN: 1. History of base of tongue cancer. There is no evidence the base of tongue cancer at this time. The patient is scheduled for CT scans and lab work by his medical oncologist, Dr. Parker, on 06/16/2019 and that would be a neck and chest CT and he is scheduled to see his medical oncologist on 06/19/2019. I ordered lab work consisting of a complete blood count, basic metabolic panel and TSH in 08/2019 and asked the patient to follow up with me afterwards. 2. Dental care. The patient indicated that his dentist gives him a PreviDent 5000 to use for dental care. 3. Hyperlipidemia. The patient takes atorvastatin that is managed by his referring physician. 4. Hypertension -- The patient takes Ziac and that is managed by his referring physicians. Thank you for allowing me to participate in the care of this patient. By: 1410 0000Collin Ortiz MD /kamryn
--- NOTE | ~2019-03-07 | ONC ---
[place] [address] RADIATION ONCOLOGY NOTE Name: JOSE MANUEL ZAMORA Room: [facility]#: [id number] Admission: 03/07/19 Attend Phys: Collin Ortiz MD Discharge: Date of : 64 Report #: [id number] THIS REPORT FOR: //name// CC: Collin Duong DATE OF SERVICE: 03/07/2019 RADIATION/ONCOLOGY PROCEDURE NOTE REFERRING PHYSICIANS: Shine Duong MD; Rosalinda Parker MD; Dustin Echeverria MD; Thomas Hunt MD; and Alejandro Green MD [facility] phone is [phone]. PRIMARY SITE HISTOPATHOLOGY: The patient received radiation therapy and chemotherapy for stage 2, T3 N2 M0, p16 positive base of tongue cancer. Radiation therapy was completed on ____. PROCEDURE: Nasopharyngolaryngoscopy. FINDINGS: On nasopharyngolaryngoscopy without the lidocaine since the patient has tolerated the procedure without lidocaine in the past per his request. There were no suspicious visible lesions in the nasopharynx or posterior oropharynx. There were no suspicious visible lesions at the base of tongue. The true vocal cords are normally mobile bilaterally without any visible lesions. There is no clear evidence of head and neck cancer. Thank you for allowing me to participate in the care of this patient. By: 1359 2119MD shabana Rand
== END ==
LOC: M.RTH 09:00
DX: Z08 Encounter for follow-up examination after completed treatment for malignant neoplasm (principal); E78.5 Hyperlipidemia, unspecified; I10 Essential (primary) hypertension; Z85.810 Personal history of malignant neoplasm of tongue; Z87.891 Personal history of nicotine dependence; Z79.899 Other long term (current) drug therapy; Z79.82 Long term (current) use of aspirin

== ENCOUNTER → 2019-10-03 | Outpatient (CLI) | payer OTHER ==
--- NOTE | ~2019-10-03 | ONC ---
[address] [address] RADIATION ONCOLOGY NOTE Name: JOSE MANUEL ZAMORA Room: [facility]#: [id number] Admission: 10/03/19 Attend Phys: Collin Ortiz MD Discharge: Date of : 64 Report #: [id number] THIS REPORT FOR: //name// CC: Collin Duong DATE OF SERVICE: 10/03/2019 RADIATION ONCOLOGY FOLLOWUP NOTE REFERRING PHYSICIANS: 1. Rosalinda Parker MD 2. Shine Duong MD 3. Dustin Echeverria MD 4. Thomas Hunt MD 5. Alejandro Green MD FACS [facility] phone is [phone]. PRIMARY SITE AND HISTOPATHOLOGY: The patient received definitive radiation therapy and chemotherapy for a stage 2 T3 N2 M0, p16 positive base of tongue cancer and radiation therapy was completed on 10/02/2017. INTERVAL NOTE: The patient felt like he was eating well. He is applying PreviDent 5000 to his teeth with the toothbrush. Choice of the regular food, he likes to eat is a pasta and vegetables and saw Dr. Echeverria about 3 weeks ago. MEDICATIONS: Right now include amlodipine, atorvastatin, bisoprolol, aspirin, omeprazole. SOCIAL HISTORY: The patient is . Cigarettes, he quit smoking in 1985. He smoked less than a pack per day for about 3 years. REVIEW OF SYSTEMS: RESPIRATORY: Breathing was stable. He was not short of breath. GASTROINTESTINAL: The patient is eating well. PHYSICAL EXAMINATION: VITAL SIGNS: The patient weighed 258.4 pounds on 10/03/2019 and 264.8 pounds on 03/07/2019 and on 10/03/2019 blood pressure is 162/107. The patient did not take his antihypertensive medication this morning and on 10/03/2019 temperature was 96.7 degrees Fahrenheit, pulse 87, oxygen saturation 96%, respirations 20. LYMPH NODES: The patient had no palpable cervical or supraclavicular lymphadenopathy. HEAD, EYES, EARS, NOSE AND THROAT: Examination of mouth had no suspicious visible lesions or suspicious palpable lesions. [place] [id number] RADIATION ONCOLOGY NOTE Name: ZAMORAJOSE MANUEL Room: [facility]#: [id number] Admission: 10/03/19 Attend Phys: Collin Ortiz MD Discharge: Date of : 64 Report #: [id number] the left nostril, there were no suspicious visible lesions in the nasopharynx, no suspicious visible lesions in the posterior oropharynx. There were no visible lesions in the base of tongue. The true vocal cords are normally mobile bilaterally without visible lesions. HEART: Had a regular rate and rhythm without murmur. LUNGS: Clear to auscultation. LABORATORY DATA: From 08/25/2019, hemoglobin 14.3, platelets were 164,000, white blood cells were 6.1. Sodium 138, potassium 3.9, BUN was 18, creatinine 1.18. TSH was 1.298, which was within normal limits. RADIOLOGIC DATA: The patient had a chest CT on 09/30/2019, which showed resolution of the atelectasis/pneumonitis in the left upper lobe. There was circumferential thickening in the esophagus, which is fluid filled, which is suggestive of esophagitis and gastroesophageal reflux and/or esophageal dysmotility. ASSESSMENT AND PLAN: 1. History of basal tongue cancer. There is no clear evidence of recurrent basal tongue cancer. The patient is scheduled for lab work and a neck and chest CT by his medical oncologist, Dr. Parker on 01/02/2020 and has an appointment with her on 01/06/2020. I ordered lab work for somewhere between June 2020 or July 2020 and asked the patient to follow up with me afterwards. 2. Dental care. The patient uses PreviDent 5000 and his dentist provided for him and his teeth look like they are in good condition. 3. Possible esophageal dysmotility. The patient will be referred to his singing telegram performer, Dr. Hunt to manage this issue. Thank you for allowing me to participate in the care of this patient. By: 1258 1611Dgisella Ortiz MD /nt
--- NOTE | ~2019-10-03 | ONC ---
[address] [address] RADIATION ONCOLOGY NOTE Name: JOSE MANUEL ZAMORA Room: [facility]#: [id number] Admission: 10/03/19 Attend Phys: Collin Ortiz MD Discharge: Date of : 64 Report #: [id number] THIS REPORT FOR: //name// CC: Collin Duong DATE OF SERVICE: 10/03/2019 RADIATION ONCOLOGY PROCEDURE NOTE REFERRING PHYSICIANS: Include Rosalinda Parker MD; Shine Duong MD; Dr. Echeverria; Dr. Hunt; ____. LOCATION: [facility], phone is [phone]. PRIMARY SITE AND HISTOPATHOLOGY: The patient received radiation therapy and chemotherapy for a stage T3 N2 M0, p16 positive base of tongue cancer. Radiation therapy was completed on . PROCEDURE: Nasopharyngolaryngoscopy. FINDINGS: On nasopharyngolaryngoscopy without lidocaine since the patient does not feel he needs lidocaine, there were no suspicious visible lesions in the nasopharynx or posterior oropharynx. There were no suspicious visible lesions in the base of tongue area. True vocal cords are normally mobile bilaterally without any visible lesions. There was no evidence of head and neck cancer. Thank you for allowing me to participate in the care of this patient. By: 1249 1403DMD shabana Schneider
== END ==
LOC: M.RTH 08-29 11:30
PROVIDERS: ATTEND Radiology Radiation Oncology
DX: Z08 Encounter for follow-up examination after completed treatment for malignant neoplasm (principal); I10 Essential (primary) hypertension; Z92.21 Personal history of antineoplastic chemotherapy; Z92.3 Personal history of irradiation; Z68.41 Body mass index [BMI] 40.0-44.9, adult; Z85.810 Personal history of malignant neoplasm of tongue